=== PATIENT | female | born 1995 | race Caucasian/White ===

== ENCOUNTER 2023-08-07 06:45 | Day surgery (SDC) | payer BC ==
[2023-08-07 07:24] VITALS: BMI 45.3
[2023-08-07] MEDS ORDERED: hydrALAZINE 20 MG/ML VIAL SLOW IVP PRN (08:11)
== END 2023-08-07 08:48 | disposition home or self-care (01) ==
LOC: CSHLD/OP 06:45
PROVIDERS: ATTEND Family Medicine
DX: O47.1 False labor at or after 37 completed weeks of gestation (principal); Z3A.40 40 weeks gestation of pregnancy; Z88.0 Allergy status to penicillin
CPT/HCPCS: 99282

== ENCOUNTER 2023-08-08 08:25 | Inpatient (IN) | payer MEDICAID ==
[2023-08-08 08:56] VITALS: BMI 45.3
[2023-08-08] MEDS ORDERED: fentaNYL 50 mcg/mL 1 mL Vial SLOW IVP PRN (10:56)
[2023-08-08] MEDS ORDERED: HYDROcodone/Acetaminophen 5/325 mg Tablet PO PRN (10:56)
[2023-08-08] MEDS ORDERED: Ibuprofen 800 MG TAB PO PRN (10:56)
[2023-08-08] MEDS ORDERED: Ondansetron PF 4 MG/2 ML Vial IVP PRN (10:56)
[2023-08-08] MEDS ORDERED: Misoprostol 200 MCG TAB PR PRN (10:56)
[2023-08-08] MEDS ORDERED: Carboprost 250 MCG/ML AMP IM PRN (10:56)
[2023-08-08] MEDS ORDERED: Methylergonovine 0.2 MG/ML VIAL IM PRN (10:56)
[2023-08-08] MEDS ORDERED: Tranexamic Acid 1,000 MG/10 ML VIAL IVP PRN (10:56)
[2023-08-08] MEDS ORDERED: Butorphanol Tartrate 1 MG/ML VIAL SLOW IVP PRN (10:56)
[2023-08-08] MEDS ORDERED: Acetaminophen 500 MG TAB PO PRN (10:56)
[2023-08-08] MEDS ORDERED: Lidocaine 1% (PF) 30 ML VIAL SC PRN (10:56)
[2023-08-08] MEDS ORDERED: hydrALAZINE 20 MG/ML VIAL SLOW IVP PRN (10:56)
[2023-08-08] MEDS ORDERED: Promethazine HCl 25 MG/ML VIAL IM PRN (10:56)
[2023-08-08] MEDS ORDERED: Oxytocin 30 units/NS 500 ML 500 ML IV SCH ×2 (11:00)
[2023-08-08 11:07] LABS: Hematocrit 36.6 % (34.9-44.5); Hemoglobin 11.7 g/dL (12.0-15.5); Mean Corpuscular Hemoglobin 26.2 pg (27.0-33.0); Mean Corpuscular Volume 82.1 fl (81.6-98.3); Mean Platelet Volume 10.9 fl (7.4-10.4); Platelet Count 315 10x3/uL (150-450); RBC Distribution Width 14.7 % (11.5-14.5); Red Blood Cell (RBC) Count 4.46 10x6/uL (3.90-5.03); White Blood Cell (WBC) Count 14.9 10x3/uL (3.5-10.5)
[2023-08-08 11:35] LABS: HBSAg Index 0.16 S/CO (0-0.99); Hep B Surf Ag - L&D Non-Reactive S/CO (NonReactive); Syphilis Antibody Nonreactive (Nonreactive); Syphilis Antibody Index 0.05 S/CO (<1.00 Non-Reactive)
[2023-08-09] MEDS: CEFAZOLIN 1 GM in Sodium Chloride 0.9% 100 ML IVPB SCH ×2 (00:40→09:29)
[2023-08-09] MEDS ORDERED: fentaNYL/Ropivacaine Epidural 100 ML ONE (01:24)
[2023-08-09] MEDS ORDERED: Naloxone HCl 0.4 mg/ml Vial IVP PRN ×4 (02:10→06:50)
[2023-08-09] MEDS ORDERED: Moisturizing Cream (Eucerin) 113 GM JAR TOP PRN ×2 (02:10→06:50)
[2023-08-09] MEDS ORDERED: Lactated Ringer's 500 ML IV PRN (02:10)
[2023-08-09] MEDS ORDERED: ePHEDrine Sulfate 50 MG/10 ML VIAL SLOW IVP PRN (02:10)
[2023-08-09] MEDS ORDERED: Ondansetron PF 4 MG/2 ML Vial IVP PRN ×3 (02:10→06:50)
[2023-08-09] MEDS ORDERED: Promethazine HCl 25 MG/ML VIAL IM PRN ×2 (02:10→06:50)
[2023-08-09] MEDS ORDERED: diphenhydrAMINE 50 MG/ML VIAL IVP PRN ×2 (02:10→06:50)
[2023-08-09] MEDS ORDERED: fentaNYL 2 mcg/Ropivacaine 0.2% Epidural 100 ML CADD EPIDURAL SCH (02:15)
[2023-08-09] MEDS ORDERED: Communication Order-Pharmacy FS SCH ×2 (02:15→07:00)
[2023-08-09] MEDS ORDERED: Azithromycin 500 MG VIAL ONE (05:09)
[2023-08-09] MEDS ORDERED: CEFAZOLIN 2 GM VIAL ONE (05:09)
[2023-08-09] MEDS ORDERED: Boostrix 0.5 ML (Tdap) VIAL (>/=7 yrs of age) IM ONE (05:35)
[2023-08-09] MEDS ORDERED: diphenhydrAMINE 25 MG CAP PO PRN (05:35)
[2023-08-09] MEDS ORDERED: hydrALAZINE 20 MG/ML VIAL SLOW IVP PRN (05:35)
[2023-08-09] MEDS ORDERED: Simethicone Chewable 80 MG TAB PO PRN (05:35)
[2023-08-09] MEDS ORDERED: Ondansetron PF 4 MG/2 ML Vial ONE (05:36)
[2023-08-09] MEDS ORDERED: Dexamethasone 4 mg/ml Vial ONE (05:36)
[2023-08-09] MEDS ORDERED: Lidocaine 2% MPF 10 ML AMP (For Epidural Use) ONE (05:39)
[2023-08-09] MEDS ORDERED: CEFAZOLIN 1 GM in Sodium Chloride 0.9% 100 ML IVPB SCH (06:00)
[2023-08-09] MEDS ORDERED: Ibuprofen 800 MG TAB PO SCH (06:00)
[2023-08-09] MEDS ORDERED: Morphine PF 10 MG/10 ML VIAL ONE (06:07)
[2023-08-09] MEDS ORDERED: Oxytocin 10 UNITS/ML VIAL ONE (06:07)
[2023-08-09] MEDS ORDERED: Naloxone HCl 0.4 mg/ml Vial IV PRN (06:50)
[2023-08-09] MEDS ORDERED: Meperidine HCl/PF 25 MG/ML VIAL SLOW IVP PRN (06:50)
[2023-08-09] MEDS ORDERED: Promethazine HCl 25 MG SUPP PR PRN (06:50)
[2023-08-09] MEDS ORDERED: fentaNYL 50 mcg/mL 1 mL Vial SLOW IVP PRN (06:50)
[2023-08-09] MEDS: Docusate 100 MG CAP PO SCH ×2 (10:47→21:41)
[2023-08-09] MEDS: Ferrous Sulfate 325 MG TAB PO SCH ×2 (10:48→22:03)
[2023-08-09] MEDS: Ketorolac Tromethamine 30 MG/ML VIAL IVP SCH ×2 (12:54→19:34)
[2023-08-10] MEDS: Ketorolac Tromethamine 30 MG/ML VIAL IVP SCH ×3 (01:36→09:05)
[2023-08-10] MEDS ORDERED: HYDROcodone/Acetaminophen 5/325 mg Tablet PO PRN (02:11)
[2023-08-10] MEDS ORDERED: Zolpidem Tartrate 5 MG TAB PO PRN (02:11)
[2023-08-10 04:10] LABS: Hematocrit 25.9 % (34.9-44.5); Hemoglobin 8.3 g/dL (12.0-15.5); Mean Corpuscular Volume 84.4 fl (81.6-98.3); Mean Platelet Volume 10.2 fl (7.4-10.4); Platelet Count 221 10x3/uL (150-450); RBC Distribution Width 14.8 % (11.5-14.5); Red Blood Cell (RBC) Count 3.07 10x6/uL (3.90-5.03); White Blood Cell (WBC) Count 17.6 10x3/uL (3.5-10.5)
[2023-08-10] MEDS: Docusate 100 MG CAP PO SCH ×2 (09:02→21:59)
[2023-08-10] MEDS: Ferrous Sulfate 325 MG TAB PO SCH ×2 (09:02→21:59)
[2023-08-10] MEDS: Acetaminophen 325 MG TAB PO PRN ×2 (09:29→18:48)
[2023-08-10] MEDS: Ibuprofen 800 MG TAB PO SCH ×2 (13:10→21:59)
[2023-08-11] MEDS: Ibuprofen 800 MG TAB PO SCH (05:18)
[2023-08-11] MEDS: Docusate 100 MG CAP PO SCH (08:45)
[2023-08-11] MEDS: Ferrous Sulfate 325 MG TAB PO SCH (08:45)
[2023-08-11 09:17] VITALS: BP 124/69; TEMP 98
== END 2023-08-11 12:00 | disposition home or self-care (01) | DRG 787 ==
LOC: CSHLD/OP 08:25 → CSHLD 10:24 → CSHPP 08-09 09:23
PROVIDERS: ADMIT Family Medicine; ATTEND Family Medicine
PROC: 10D00Z1 Extraction of Products of Conception, Low, Open Approach (ICD-10-PCS; principal; 2023-08-09)
PROC: 3E033VJ Introduction of Other Hormone into Peripheral Vein, Percutaneous Approach (ICD-10-PCS; 2023-08-09)
PROC: 10H07YZ Insertion of Other Device into Products of Conception, Via Natural or Artificial Opening (ICD-10-PCS; 2023-08-09)
PROC: 3E0234Z Introduction of Serum, Toxoid and Vaccine into Muscle, Percutaneous Approach (ICD-10-PCS; 2023-08-09)
DX: O42.02 Full-term premature rupture of membranes, onset of labor within 24 hours of rupture (principal); D62 Acute posthemorrhagic anemia; Z3A.40 40 weeks gestation of pregnancy; Z37.0 Single live birth; Z88.0 Allergy status to penicillin; O63.0 Prolonged first stage (of labor); O76 Abnormality in fetal heart rate and rhythm complicating labor and delivery; O69.81X0 Labor and delivery complicated by cord around neck, without compression, not applicable or unspecified; O90.81 Anemia of the puerperium; O26.893 Other specified pregnancy related conditions, third trimester; Z67.41 Type O blood, Rh negative
CPT/HCPCS: 36415; 51702; 85027; 85461; 86780; 86850; 86900; 86901; 87340; 90384; 96372; 99285; J0690; J1100; J1885; J2274; J2405; J2590; J3010; J3490